=== PATIENT | female | born 1985 | race American Indian/Alaskan Native ===

== ENCOUNTER 2017-07-18 18:21 | Emergency (ER) | payer MEDICAID ==
[2017-07-18 20:06] VITALS: BP 132/73
[2017-07-18] MEDS ORDERED: TRIMOX PO ONE (21:41)
[2017-07-18] MEDS ORDERED: NORCO 5/325 PO ONE (21:42)
--- NOTE | 2017-07-18 21:43 | Emergency Department Report ---
ED ENT HPI - General Chief complaint: Dental/Oral Stated complaint: TOOTHACHE Time Seen by Provider: 07/18/17 21:39 Source: patient Mode of arrival: Ambulatory Limitations: No Limitations - History of Present Illness MD complaint: tooth pain -: Gradual, days(s) Consistency: constant Improves with: pressure Worsens with: none Context- Dental: history of dental caries Associated Symptoms: toothache. denies: fever, cough, gum swelling, pain with swallowing, sore throat, tinnitus, hearing loss, discharge from ear, rhinorrhea - Related Data Previous Rx's Medication Instructions Recorded Last Taken Type Amoxicillin 500 mg PO BID #20 capsule 07/18/17 Unknown Rx Naproxen [Naprosyn] 500 mg PO BID PRN #20 tablet 07/18/17 Unknown Rx Allergies Allergy/AdvReac Type Severity Reaction Status Date / Time No Known Allergies Allergy Unverified 07/18/17 20:06 ED Dental HPI - General Chief complaint: Dental/Oral Stated complaint: TOOTHACHE Time Seen by Provider: 07/18/17 21:39 Source: patient Mode of arrival: Ambulatory Limitations: No Limitations - Related Data Previous Rx's Medication Instructions Recorded Last Taken Type Amoxicillin 500 mg PO BID #20 capsule 07/18/17 Unknown Rx Naproxen [Naprosyn] 500 mg PO BID PRN #20 tablet 07/18/17 Unknown Rx Allergies Allergy/AdvReac Type Severity Reaction Status Date / Time No Known Allergies Allergy Unverified 07/18/17 20:06 ED Review of Systems ROS: Stated complaint: TOOTHACHE Other details as noted in HPI Comment: All other systems reviewed and negative ENT: dental pain ED Past Medical Hx - Past Medical History Previous Medical History?: No - Surgical History Past Surgical History?: No - Social History Smoking Status: Never Smoker Substance Use Type: None - Medications Home Medications: Home Medications Medication Instructions Recorded Confirmed Last Taken Type Amoxicillin 500 mg PO BID #20 capsule 07/18/17 Unknown Rx Naproxen [Naprosyn] 500 mg PO BID PRN #20 tablet 07/18/17 Unknown Rx ED Physical Exam - General Limitations: No Limitations General appearance: alert - Head Head exam: Present: atraumatic - Eye Eye exam: Present: PERRL - ENT ENT exam: Present: mucous membranes moist - Expanded ENT Exam Expanded Mouth exam: Absent: drooling, trismus, muffled voice, tongue normal, tongue elevation Teeth exam: Present: normal inspection, dental caries 1 - Other (caries) Throat exam: Positive: normal inspection - Neck Neck exam: Present: normal inspection - Respiratory Respiratory exam: Present: normal lung sounds bilaterally - Cardiovascular Cardiovascular Exam: Present: regular rate - GI/Abdominal GI/Abdominal exam: Present: soft - Rectal Rectal exam: Present: deferred - Extremities Exam Extremities exam: Present: normal inspection - Back Exam Back exam: Present: normal inspection - Neurological Exam Neurological exam: Present: alert, oriented X3 - Psychiatric Psychiatric exam: Present: normal affect, normal mood - Skin Skin exam: Present: warm, dry, intact ED Course Vital Signs 07/18/17 20:04 Temperature 98.2 F Pulse Rate 61 Respiratory 17 Rate Blood Pressure 132/73 O2 Sat by Pulse 99 Oximetry ED Medical Decision Making - Medical Decision Making see note - Differential Diagnosis dental caries Critical care attestation.: If time is entered above; I have spent that time in minutes in the direct care of this critically ill patient, excluding procedure time. ED Disposition Clinical Impression: Dental caries, Pain, dental Disposition: DC-01 TO HOME OR SELFCARE Is pt being admited?: No Does the pt Need Aspirin: No Condition: Stable Instructions: Dental Caries (ED) Additional Instructions: med as ordered today see dentist buddy see list of dentists provided good oral care Referrals: CIPRIANO QUAN MD [Primary Care Provider] - 3-5 Days Time of Disposition: 21:41
== END 2017-07-18 21:56 | disposition home or self-care (01) ==
LOC: ED 18:21
DX: K02.9 Dental caries, unspecified (principal)
CPT/HCPCS: 99282

== ENCOUNTER 2018-01-02 14:57 | Emergency (ER) | payer MEDICAID ==
[2018-01-02 15:11] VITALS: BP 105/62
[2018-01-02] MEDS ORDERED: ASPIRIN PO ONE (15:15)
[2018-01-02 15:48] LABS: Basophils % (Auto) 0.2 % (0.0-1.8); Hematocrit 42.5 % (30.3-42.9); Hemoglobin 13.9 gm/dl (10.1-14.3); Lymphocytes # (Auto) 0.4 K/mm3 (1.2-5.4); Lymphocytes % (Auto) 7.8 % (13.4-35.0); Mean Corpuscular HGB Conc 33 % (30-34); Mean Corpuscular Hemoglobin 27 pg (28-32); Mean Corpuscular Volume 83 fl (79-97); Monocytes # (Auto) 0.6 K/mm3 (0.0-0.8); Monocytes % (Auto) 10.3 % (0.0-7.3); Platelet Count 177 K/mm3 (140-440); Red Blood Count 5.15 M/mm3 (3.65-5.03); Red Cell Distribution Width 14.5 % (13.2-15.2)
[2018-01-02 16:08] LABS: Alanine Aminotransferase 13 units/L (7-56); Albumin 4.5 g/dL (3.9-5); BUN/Creatinine Ratio 15; Blood Urea Nitrogen 9 mg/dL (7-17); Calcium 8.8 mg/dL (8.4-10.2); Hemolysis Index 2
[2018-01-02] MEDS ORDERED: LEVAQUIN PO ONE (17:39)
[2018-01-02] MEDS ORDERED: IMODIUM PO ONE (17:39)
--- NOTE | 2018-01-02 17:39 | Emergency Department Report ---
ED General Adult HPI - General Chief complaint: Chest Pain Stated complaint: CHEST PAINS AND PASSING OUT Time Seen by Provider: 01/02/18 17:23 Source: patient Mode of arrival: Ambulatory Limitations: No Limitations - History of Present Illness Initial comments: Ms. Jasmine is a healthy 32 yo female with epigastric pressure radiating to back. Gradual onset yesterday Worse with inspiration. She then developed diarrhea. at least 20 stools. Has had recurrent syncope during defecation. LMP last month. Ate [employer] sandwich prior to sickness. - Related Data Previous Rx's Medication Instructions Recorded Last Taken Type Amoxicillin 500 mg PO BID #20 capsule 07/18/17 Unknown Rx Naproxen [Naprosyn] 500 mg PO BID PRN #20 tablet 07/18/17 Unknown Rx Allergies Allergy/AdvReac Type Severity Reaction Status Date / Time No Known Allergies Allergy Verified 01/02/18 17:33 ED Review of Systems ROS: Stated complaint: CHEST PAINS AND PASSING OUT Other details as noted in HPI Comment: All other systems reviewed and negative Constitutional: chills, fever, malaise Cardiovascular: chest pain Gastrointestinal: abdominal pain, diarrhea ED Past Medical Hx - Past Medical History Hx Diabetes: Yes - Surgical History Past Surgical History?: No - Social History Smoking Status: Never Smoker Substance Use Type: Alcohol - Medications Home Medications: Home Medications Medication Instructions Recorded Confirmed Last Taken Type Amoxicillin 500 mg PO BID #20 capsule 07/18/17 Unknown Rx Naproxen [Naprosyn] 500 mg PO BID PRN #20 tablet 07/18/17 Unknown Rx ED Physical Exam - General Limitations: No Limitations General appearance: alert, in no apparent distress - Head Head exam: Present: atraumatic, normocephalic - Eye Eye exam: Present: normal appearance - ENT ENT exam: Present: mucous membranes moist - Neck Neck exam: Present: normal inspection - Respiratory Respiratory exam: Present: normal lung sounds bilaterally. Absent: respiratory distress, wheezes - Cardiovascular Cardiovascular Exam: Present: regular rate, normal rhythm, normal heart sounds. Absent: systolic murmur, diastolic murmur, rubs, gallop - GI/Abdominal GI/Abdominal exam: Present: soft, normal bowel sounds. Absent: distended, tenderness, guarding, rebound - Extremities Exam Extremities exam: Present: normal inspection - Back Exam Back exam: Present: normal inspection - Neurological Exam Neurological exam: Present: alert, oriented X3 - Psychiatric Psychiatric exam: Present: normal affect, normal mood - Skin Skin exam: Present: warm, dry, intact, normal color. Absent: rash ED Course Vital Signs 01/02/18 15:05 Temperature 98.4 F Pulse Rate 108 H Respiratory 18 Rate Blood Pressure 105/62 O2 Sat by Pulse 99 Oximetry ED Medical Decision Making - Lab Data Result diagrams: 01/02/18 15:30 01/02/18 15:30 Laboratory Results - last 24 hr 01/02/18 01/02/18 01/02/18 15:30 15:30 15:30 WBC 5.4 RBC 5.15 H Hgb 13.9 Hct 42.5 MCV 83 MCH 27 L MCHC 33 RDW 14.5 Plt Count 177 Lymph % (Auto) 7.8 L Bibb % (Auto) 10.3 H Eos % (Auto) 0.0 Baso % (Auto) 0.2 Lymph # 0.4 L Bibb # 0.6 Eos # 0.0 Baso # 0.0 Seg Neutrophils % 81.7 H Seg Neutrophils # 4.4 D-Dimer 542.76 H Sodium 133 L Potassium 3.1 L Chloride 95.8 L Carbon Dioxide 24 Anion Gap 16 BUN 9 Creatinine 0.6 L Estimated GFR > 60 BUN/Creatinine Ratio 15 Glucose 125 H Calcium 8.8 Total Bilirubin 0.90 AST 26 ALT 13 Alkaline Phosphatase 45 Troponin T Total Protein 7.0 Albumin 4.5 Albumin/Globulin Ratio 1.8 01/02/18 15:30 WBC RBC Hgb Hct MCV MCH MCHC RDW Plt Count Lymph % (Auto) Bibb % (Auto) Eos % (Auto) Baso % (Auto) Lymph # Bibb # Eos # Baso # Seg Neutrophils % Seg Neutrophils # D-Dimer Sodium Potassium Chloride Carbon Dioxide Anion Gap BUN Creatinine Estimated GFR BUN/Creatinine Ratio Glucose Calcium Total Bilirubin AST ALT Alkaline Phosphatase Troponin T < 0.010 Total Protein Albumin Albumin/Globulin Ratio Vital Signs - 24 hr 01/02/18 15:05 Temperature 98.4 F Pulse Rate 108 H Respiratory 18 Rate Blood Pressure 105/62 O2 Sat by Pulse 99 Oximetry - EKG Data 01/02/18 17:38 Time obtained 1458 Normal sinus rhythm rate 90 bpm abnormal axis no signs of ischemia no ST elevation nonspecific T wave pattern in the inferior leads - Medical Decision Making Ms. Solis presents with Epigastric pain, syncope, diarrhea. Suspect food poisoning with vasovagal syncope. With elevated d-dimer with rule out PE with CTA rx: ciprofloxacin, loperamide Critical care attestation.: If time is entered above; I have spent that time in minutes in the direct care of this critically ill patient, excluding procedure time. ED Disposition Clinical Impression: Food poisoning, Syncope Disposition: DC-01 TO HOME OR SELFCARE Is pt being admited?: No Does the pt Need Aspirin: No Condition: Stable Instructions: Syncope (ED), Food Poisoning (ED) Referrals: [facility] [Outside] - 3-5 Days Forms: Work/School Release Form(ED)
[2018-01-02] MEDS ORDERED: NACL 0.9% 1000 ML 1,000 ML IV ONE (17:41)
--- NOTE | 2018-01-02 20:09 | Cat Scan Report ---
FINAL REPORT PROCEDURE: CT ANGIO CHEST TECHNIQUE: Computerized tomographic angiography of the chest was performed after the IV injection of iodinated nonionic contrast including image processing. The image data was postprocessed using 2-dimensional multiplanar reformatted (MPR) and 3-dimensional (MIP and/or volume rendered) techniques. HISTORY: elevated d-dimer epigastric pain COMPARISON: No prior studies are available for comparison. FINDINGS: Heart and pericardium: No pericardial effusion or thickening. Thoracic aorta: No aneurysm or dissection. Pulmonary vasculature: Normal. Lymph nodes: No enlarged thoracic lymph nodes. Lungs: Normal. Pleural space: No effusion, thickening, or pneumothorax. Musculoskeletal structures: No significant abnormality. Upper abdominal structures: No significant abnormality. IMPRESSION: No evidence of pulmonary emboli
== END 2018-01-02 20:23 | disposition home or self-care (01) ==
LOC: ED 14:57
DX: T62.91XA Toxic effect of unspecified noxious substance eaten as food, accidental (unintentional), initial encounter (principal); R55 Syncope and collapse; Y92.89 Other specified places as the place of occurrence of the external cause; E11.9 Type 2 diabetes mellitus without complications
CPT/HCPCS: 36415; 71275; 80053; 84484; 84702; 85025; 85379; 93005; 93010; 96360; 96361; 99284; J7030; Q9967

== ENCOUNTER 2019-09-28 16:53 | Emergency (ER) | payer BC, MEDICAID ==
[2019-09-28 16:59] VITALS: BP 128/46
--- NOTE | 2019-09-28 17:04 | Emergency Department Report ---
Upper Respiratory HPI - HPI Chief Complaint: Upper Respiratory Infection Stated Complaint: COLD FLU SYM/NUMBNESS IN BOTH HANDS Time Seen by Provider: 09/28/19 16:59 Duration: 2 Days URI Symptoms: Rhinorrhea: No, Sore Throat: No, Ear Pain: No, Cough: Yes (dry), Shortness of Breath: No, Sick Contacts: No, Unable to Take Fluids: No, Urine Output Abnormal: No, Listless Behavior: No Other History: This is a 33-year-old female nontoxic well in [facility] with no signs of distress presents with dry nonproductive cough x2 days. Patient denies any chest pain, shortness of breathe, fever, chills, nausea, vomiting, headache, stiff neck, abdominal pain, numbness or tingling. Patient denies any recent travels, long car rides, or recent hospital stays. Denies any allergies or significant PMH. - Home Meds and Allergies Home Medications: Previous Rx's Medication Instructions Recorded Last Taken Type Amoxicillin 500 mg PO BID #20 capsule 07/18/17 Unknown Rx Naproxen [Naprosyn] 500 mg PO BID PRN #20 tablet 07/18/17 Unknown Rx Ciprofloxacin HCl [Cipro] 500 mg PO BID 3 Days #6 tablet 01/02/18 Unknown Rx Loperamide [Imodium] 4 mg PO QID 2 Days #16 capsule 01/02/18 Unknown Rx Allergies/Adverse Reactions: Allergies Allergy/AdvReac Type Severity Reaction Status Date / Time No Known Allergies Allergy Verified 01/02/18 17:33 ED Review of Systems ROS: Stated complaint: COLD FLU SYM/NUMBNESS IN BOTH HANDS Other details as noted in HPI Constitutional: denies: chills, fever Eyes: denies: eye pain, eye discharge, vision change ENT: denies: ear pain, throat pain Respiratory: cough. denies: shortness of breath, wheezing Cardiovascular: denies: chest pain, palpitations Endocrine: no symptoms reported Gastrointestinal: denies: abdominal pain, nausea, diarrhea Genitourinary: denies: urgency, dysuria, discharge Musculoskeletal: denies: back pain, joint swelling, arthralgia Skin: denies: rash, lesions Neurological: denies: headache, weakness, paresthesias Psychiatric: denies: anxiety, depression Hematological/Lymphatic: denies: easy bleeding, easy bruising ED Past Medical Hx - Past Medical History Previous Medical History?: No Hx Diabetes: Yes - Surgical History Past Surgical History?: No - Social History Smoking Status: Never Smoker Substance Use Type: Alcohol - Medications Home Medications: Home Medications Medication Instructions Recorded Confirmed Last Taken Type Amoxicillin 500 mg PO BID #20 capsule 07/18/17 Unknown Rx Naproxen [Naprosyn] 500 mg PO BID PRN #20 tablet 07/18/17 Unknown Rx Ciprofloxacin HCl [Cipro] 500 mg PO BID 3 Days #6 tablet 01/02/18 Unknown Rx Loperamide [Imodium] 4 mg PO QID 2 Days #16 capsule 01/02/18 Unknown Rx ED Bronchiolitis Physical Exam - Exam General: Vital signs noted. No distress. Alert and acting appropriately. HEENT: No Pharyngeal Erythema, No Conjuctival Injection, No Dry Mucous Membranes, No Rhinorrhea Ear: Neither TM Bulge, Neither TM Erythema, Neither EAC Discharge Neck: No Adenopathy, No Rigidity Lungs: Yes Clear Lung Sounds, Yes Good Air Exchange, No Wheezes, No Stridor, No Cough, No Nasal Flaring, No Retractions, No Use of Accessory Muscles Heart: Yes Regular, No Murmur Abdomen: Yes Normal Bowel Sounds, No Tenderness, No Peritoneal Signs Skin: No Rash, No Eczema Neurologic: Alert and oriented, no deficits. Musculoskeletal: Unremarkable. ED Physical Exam - General Limitations: No Limitations ED Course Vital Signs 09/28/19 16:57 Temperature 97.8 F Pulse Rate 71 Respiratory 20 Rate Blood Pressure 128/46 O2 Sat by Pulse 100 Oximetry - Reevaluation(s) Reevaluation #1: 09/28/19 16:59 Patient is speaking in full sentences with no signs of distress noted. ED Medical Decision Making - Medical Decision Making 33-year-old female that presents with viral bronchitis like symptoms. Patient is stable and was examined by me. Patient does not meet COVID-19 precautions but patient was educated and instructed to self quaratine if symptoms do occur. Patient was educated on OTC suppurative care and medications. Vital signs are stable. Patient was instructed to Follow-up with a primary care doctor in 3-5 days or if symptoms worsen and continue return to emergency room as soon as p ossible. At time of discharge, the patient does not seem toxic or ill in appearance. No acute signs of distress noted. Patient agrees to discharge treatment plan of care. No further questions noted by the patient. Critical care attestation.: If time is entered above; I have spent that time in minutes in the direct care of this critically ill patient, excluding procedure time. ED Disposition Clinical Impression: Viral bronchitis Disposition: MED SCREENING EXAM-LEFT Is pt being admited?: No Does the pt Need Aspirin: No Condition: Stable Instructions: Acute Bronchitis (ED) Additional Instructions: Follow-up with a primary care doctor in 3-5 days or if symptoms worsen and continue return to emergency room as soon as possible. Referrals: PRIMARY MD RAYMOND [Primary Care Provider] - 3-5 Days BREE KATZ MD [Staff Physician] - 3-5 Days [facility] [Outside] - 3-5 Days
== END 2019-09-28 17:00 | disposition left against medical advice (07) ==
LOC: ED 16:53
DX: J20.8 Acute bronchitis due to other specified organisms (principal); E11.9 Type 2 diabetes mellitus without complications; Z79.2 Long term (current) use of antibiotics; Z79.899 Other long term (current) drug therapy
CPT/HCPCS: 99281